=== PATIENT | male | born 1985 | race Caucasian/White ===

== ENCOUNTER 2017-05-12 19:30 | Emergency (ER) | payer SELFPAY ==
[~2017-05-12] VITALS: Ht 172.7 cm; Wt 86.2 kg
[2017-05-12 19:33] VITALS: BP 135/90
--- NOTE | 2017-05-12 19:38 | NUR ---
to lobby, chano gates, a/w annel neville noted
--- NOTE | 2017-05-12 21:48 | NUR ---
PT TAKEN TO OF
--- NOTE | 2017-05-12 22:07 | NUR ---
rt ankle pain,s/p fall last monday NO BRUSING NOTED, PEDAL PULSES PRESENT, CAP REFILL<3, SKIN W/D/I/
--- NOTE | 2017-05-12 23:20 | NUR ---
WAITING FOR DISPOSITION, NO CHANGES IN PT CONDITON.
[2017-05-12 23:50] VITALS: BP 132/71
--- NOTE | 2017-05-12 23:53 | NUR ---
Patient discharged with v/s stable. Written and verbal after care instructions given and explained. Patient alert, oriented and verbalized understanding of instructions. Ambulatory with steady gait. All questions addressed prior to discharge. ID band removed. Patient advised to follow up with PMD. Rx of PROMETHAZINE given. Patient educated on indication of medication including possible reaction and side effects. Opportunity to ask questions provided and answered. Addendum: 05/12/17 at 2354 by [facility] NO PROMETHAZINE GIVEN, WRONG PT, PT LEFT WITH NO MEDS
== END 2017-05-12 23:53 | disposition home or self-care (01) ==
LOC: MED 19:30
DX: S93.401A Sprain of unspecified ligament of right ankle, initial encounter (principal); W18.40XA Slipping, tripping and stumbling without falling, unspecified, initial encounter; Y93.89 Activity, other specified; Y92.89 Other specified places as the place of occurrence of the external cause; Y99.8 Other external cause status
CPT/HCPCS: 73610; 99284

== ENCOUNTER 2018-03-06 15:41 | Emergency (ER) | payer MEDICAID ==
[~2018-03-06] VITALS: Ht 170.2 cm; Wt 81.6 kg
[2018-03-06 15:47] VITALS: BP 129/84
--- NOTE | 2018-03-06 16:19 | NUR ---
PT. AMBULATED WITH STEADY GAIT TO BED 5. NO DISTRESS NOTED.
[2018-03-06 17:03] LABS: APPEARANCE,URINE CLEAR (CLEAR); BILIRUBIN,URINE NEGATIVE (NEGATIVE); BLOOD, URINE NEGATIVE (NEGATIVE); COLOR,URINE YELLOW (YELLOW); LEUKOCYTE ESTERASE ,URINE NEGATIVE (NEGATIVE); NITRITE, URINE NEGATIVE (NEGATIVE); UGLUCOSE NEGATIVE (NEGATIVE)
--- NOTE | 2018-03-06 17:07 | NUR ---
PT. RESTING COMFORTABLY IN BED, RR EVEN AND UNLABORED. VSS. TO BE SEEN BY DR. DOMINGUEZ.
[2018-03-06 17:09] LABS: BARBITURATE, URINE NEG. ng/ml (NEG <=200); BENZODIAZEPINE, URINE NEG. ng/mL (NEG <=200); CANNABINOID, URINE NEG. ng/mL (NEG <=50); COCAINE, URINE NEG. ng/mL (NEG <=300); OPIATE, URINE NEG. ng/mL (NEG <=2000); PHENCYCLIDINE SCREEN,URINE NEG. ng/mL (NEG <=25)
--- NOTE | 2018-03-06 18:00 | NUR ---
PT. RESTING COMFORTABLY IN BED, RR EVEN AND UNLABORED. VSS. WILL CONTINUE TO MONITOR.
--- NOTE | 2018-03-06 18:50 | NUR ---
PT. STATES " I DO NOT WANT TO WAIT FOR THE CT SCAN ANYMORE I FEEL BETTER AND WOULD LIKE TO GO HOME". ER MD DOMINGUEZ NOTIFIED.
[2018-03-06 18:52] VITALS: BP 120/76
--- NOTE | 2018-03-06 18:52 | NUR ---
Patient discharged with v/s stable. Written and verbal after care instructions given and explained. Patient alert, oriented and verbalized understanding of instructions. Ambulatory with steady gait. All questions addressed prior to discharge. ID band removed. Patient advised to follow up with PMD. Rx of VISTARIL 25MG given. Patient educated on indication of medication including possible reaction and side effects. Opportunity to ask questions provided and answered.
== END 2018-03-06 18:52 | disposition home or self-care (01) ==
LOC: MED 15:41
DX: R20.0 Anesthesia of skin (principal); R51 Headache
CPT/HCPCS: 36415; 80305; 81003; 99284; G0482